=== PATIENT | female | born 1985 | race American Indian/Alaskan Native ===

== ENCOUNTER 2018-01-10 14:18 | Outpatient (CLI) | payer BC ==
--- NOTE | 2018-01-10 15:29 | Mammography Report ---
Bilateral diagnostic mammogram and sonogram right breast: No previous studies available. CAD study utilized. History: Small palpable area outer right breast adjacent to chest wall. Findings: Scattered glandular parenchyma bilaterally. No distinct microcalcification. Focal 4 mm asymmetry subareolar area in the right breast seen on CC view. Sonographic examination does not reveal cystic or solid mass at subareolar area and at the palpable area. Impression: Probably benign findings. 6 month followup with mammogram and if necessary sonogram recommended. BI-RADS CATEGORY: 3 = Probably benign ACR BI-RADS MAMMOGRAPHIC CODES: 0 = Needs additional imaging evaluation; 1 = Negative; 2 = Benign; 3 = Probably benign; 4 = Suspicious; 5 = Malignant; 6 = Known biopsy-proven malignancy COMMENT: 1. Dense breast tissue, i.e., adenosis, fibrocystic changes, etc., may obscure an underlying neoplasm. 2. Approximately 10% of cancers are not detected with mammography. 3. A negative mammography report should not delay biopsy if a clinically suspicious mass is present. COMMENT: [facility] Impression:
== END 2018-01-10 14:19 | disposition home or self-care (01) ==
LOC: MAMMO 14:18
PROVIDERS: ATTEND Obstetrics & Gynecology Gynecology
DX: R92.8 Other abnormal and inconclusive findings on diagnostic imaging of breast (principal)
CPT/HCPCS: 77066